=== PATIENT | female | born 1940 | race Caucasian/White ===

== ENCOUNTER 2016-10-20 08:52 | Inpatient (IN) | payer MEDICARE, BC ==
[~2016-10-20] VITALS: Ht 167.6 cm; Wt 63.4 kg
--- NOTE | ~2016-10-20 | ECH ---
Transthoracic Echocardiography Report (TTE) Demographics Patient Name FRANSISCO NIEVES Date of Study 10/21/2016 Patient Number [id number] Visit Number [id number] Date of 1940 Room Number 429 Accession Number [id number] Gender Female Age 76 year(s) Referring David Green MD Supervisor Unloading Guerda Mancia [facility] Physician Stephanie Fitzgerald MD Physician Interpreting King Alex Herring MD Pipe Production Worker Physician Supervising Ordering Physician Stephanie Fitzgerald MD/LEANN ELY Nurse Stress Manager Lean Conclusions Summary Technically adequate exam. The estimated left ventricular ejection fraction is 20-25%. Severe concentric left ventricular hypertrophy. Diastolic assessment reveals Grade II pseudonormal diastolic function . The left ventricle endocardium appears to have increased echogenicity suggestive of possible amyloidosis. Normal right ventricular size and decreased systolic function. RIght ventricular hypertrophy with wall measuring 1.16cm. The left atrium is mildly dilated by LA volume index measurement. Dilated IVC with poor inspiratory collapse consistent with elevated RA pressure. Moderate tricuspid regurgitation by color Doppler. There is mild pulmonary hypertension. The pulmonary pressure (RVSP) is 37 mmHg. Trivial pulmonic valve regurgitation by color Doppler. Procedure Type of Study TTE procedure:Echo Complete SF. Procedure Date Date: 10/21/2016 Start: 02:48 PM Technical Quality: Adequate visualization Indications:Elevated cardiac enzymes, Congestive heart failure and Hypertension. Appropriate Use Criteria: 9 Height: 66 inches Weight: 128 pounds BSA: 1.65 m Rhythm: Sinus with bundle branch block HR: 70 bpm BP: 119/61 mmHg M-Mode/2D Measurements LV Diastolic Dimension: 4.09 cm LV Systolic Dimension: 3.71 cm LV Septum Diastolic: 1.68 cm LV PW Diastolic: 1.74 cm AO Root Dimension: 2.06 cm Cardiac Output: 1.16 l/min LA Dimension: 4.28 cm Cardiac Index: 0.7 l/min*m RV Diastolic Dimension: 2.91 cm LA volume index: 37 ml/m LVOT: 1.58 cm IVC Inspiration: 2.2 cm LVOT VTI: 8.49 cm RV Base: 3.2 cm LV Stroke volume: 16.64 ml RV Mid: 2 cm LV Stroke volume index: 10.08 ml/m RV Length: 6.8 cm TAPSE: 0.8 cm TDI-S': 0.7 cm/s Doppler Measurements AV Peak Velocity: 0.8 m/s MV Peak E-Wave: 0.9 m/s AV Peak Gradient: 2.56 mmHg MV Peak A-Wave: 0.45 m/s AV Mean Gradient: 1.05 mmHg MV E/A Ratio: 1.99 LVOT Peak Velocity: 0.68 m/s MV P1/2t: 32.9 msec AV Area (Continuity):2.07 cm MV Deceleration Time: 116 msec TR Velocity:2.36 m/s MV Area (PHT): 6.7 cm TR Gradient:22.26 mmHg PV Peak Velocity: 0.74 m/s Estimated RAP:15 mmHg PV Peak Gradient: 2.21 mmHg Estimated RVSP: 37 mmHg Estimated PASP: 37.26 mmHg RA Area: 14.89 cm Findings Left Ventricle The left ventricle is normal in size . Severe concentric left ventricular hypertrophy. Diastolic assessment reveals Grade II pseudonormal diastolic function . The left ventricle endocardium appears to have increased echogenicity suggestive of possible amyloidosis. Right Ventricle Normal right ventricular size and decreased systolic function. RIght ventricular hypertrophy with wall measuring 1.16cm. Left Atrium The left atrium is mildly dilated by LA volume index measurement. Right Atrium Normal right atrial size. Dilated IVC with poor inspiratory collapse consistent with elevated RA pressure. Mitral Valve Normal mitral valve structure and function. Mild mitral regurgitation by color Doppler. Aortic Valve Normal aortic valve structure and function. Tricuspid Valve Normal appearing tricuspid valve. Moderate tricuspid regurgitation by color Doppler. There is mild pulmonary hypertension. The pulmonary pressure (RVSP) is 37 mmHg. Pulmonic Valve Normal pulmonic valve structure and function. Trivial pulmonic valve regurgitation by color Doppler. Pericardial Effusion Trivial pericardial effusion. Miscellaneous Visualized portions of the aortic root and ascending aorta appear normal in size. Pleural Effusion No evidence of pleural effusion. Contractility Score LV regional wall motion:(0-Non visualized 1-Normal 2-Hypokinesis 3-Akinesis 4-Dyskinesis 5-Aneurysm) Signature
[~2016-10-20 08:52] MED LIST: ALTOPREV20 MG PO; AMBIEN5 MG PO; ASPIR 8181 MG PO; ATIVAN-DPS0.5 MG PO; CENTRUM SILVER1 EAC1 PO; COREG3.125 MG PO; FERROUS FUMARA324 MG PO; GLUCOPHAGE-DPS500 MG PO; LISINOPRIL20 MG PO; MAALOX DPS30 ML PO; MELATONIN3 M1 PO; MOBIC7.5 MG PO; PLAQUENIL200 MG PO; PLAVIX75 MG PO; QUESTRAN DPS4 GM PO; SURFAK240 MG PO; TYLENOL325 MG PO
--- NOTE | 2016-10-21 10:41 | ER ---
ADMIT: 10/20/2016 RM/LOC: ER [facility] MR#: [id number] [address] [facility] [address] [place], [place] [address] FRANSISCO NIEVES [address] [place] [address] Emergency Room Report SEX: F AGE: 76 : 1940 DATE: 10/20/2016 BRIEF ADDENDUM: Please see my T-sheet for complete review of systems, past medical history, and physical exam. CHIEF COMPLAINT: Weakness. HISTORY OF PRESENT ILLNESS: This is a pleasant 76-year-old white female, who presents with progressive weakness for the past 2 weeks. She is seen at bedside with her family who relate their concerns for increased confusion and weakness to the point where she is unable to get out of bed or take more than 2 to 3 steps at this time. States she has had increasing falls at home. She is typically alert and oriented x4. Uses a walker. Lives alone independently. She admits to some urinary frequency, however denies any dysuria. She does have a cough, however nonproductive. She does have some bilateral lower swelling. PAST MEDICAL HISTORY: 1. CHF. 2. Diabetes with oral control. 3. Hypertension. 4. Hyperlipidemia. 5. Arthritis. PAST SURGICAL HISTORY: 1. Left hip ORIF. 2. Cholecystectomy. 3. Appendectomy. She does follow up with Dr. Oscar at [facility]. COURSE IN THE EMERGENCY ROOM: The patient was seen and examined. Given concerns for urinary tract infection, did get a quick cath UA on her which showed no signs of infection. Did proceed sepsis protocol. White count 6.6, hemoglobin 12.9, hematocrit 39.6, platelets 157. CMP; sodium 143, potassium 4.1, CO2 of 27, BUN 27, creatinine 1.5, AST 46, ALT 45. Cardiac markers; CK 92, CK-MB 7.4, troponin of 0.860, PTT was 23, INR 1.12, lactic acid 1.5. I did discuss this patient with Dr. Garcia, and reviewed some old records. She ADMIT: 10/20/2016 RM/LOC: ER [facility] MR#: [id number] [address] [address] EZEQUIELFRANSISCO Divya [address] [place] [address] Emergency Room Report SEX: F AGE: 76 : 1940 does have a history of hypercalcemia, corrected calcium today 11.5, concerned this could possibly be contributing to some of her altered status. I did request a head CT which we will complete prior to admission. IMPRESSION: 1. Confusion. 2. Weakness. 3. Elevated troponin. 4. Hypercalcemia. DISPOSITION: The patient will be admitted by Dr. Garcia for further evaluation and management. She is admitted to the floor in stable condition. JENNIFER Kirkland / Narayan Nguyen MD / soheilal JOB #: [id number] CC: Narayan Nguyen MD, Attending Physician Dirk Brown MD, Family Physician
--- NOTE | 2016-10-22 07:07 | HP ---
ADMIT: 10/20/2016 RM/LOC: 429 [facility] MR#: [id number] [address] [address] FRANSISCO NIEVES [address] [place] [address] History and Physical SEX: F AGE: 76 : 1940 DATE OF SERVICE: 10/20/2016 CHIEF COMPLAINT: Increasing weakness, now some confusion. HISTORY OF PRESENT ILLNESS: Fransisco was brought to the emergency room by her three children who I interviewed. She had a fall several days ago, but no apparent injuries at that time, did not seek medical care at that time. However, her children who watch over her closely notes that Fransisco does live alone. They have noticed increasing weakness as she is not getting up, there has definitely been some change in her mental status, her self cares have declined, so they brought her to the emergency room today where she was first evaluated by medical staff in the emergency room. For me, Fransisco denied any pain, chills, fever, nausea, vomiting, diarrhea, or shortness of breath. She has had some chronic urinary incontinence which is unchanged, but no dysuria. At any rate, she had a fairly extensive evaluation by emergency room staff including CT head, which showed only some changes consistent with pansinusitis. She had a modest elevation of her cardiac enzymes (this is a patient who has known impaired cardiac function with an EF varying from 20% to 35% as of late). She also had elevated corrected calcium 11.5, which is about 1.5 points above baseline. However, her phosphate was normal and her PTH was not elevated. Also, lactic was normal, procalcitonin was normal, and her CBC was unremarkable. That being said, she represents a high risk going back to her own home where she lives alone and it was felt that she should be admitted for the increased confusion and increased weakness and further evaluated. PAST MEDICAL HISTORY: Chronic problems include: 1. Stage 2 chronic kidney disease. 2. Nonobstructive coronary artery disease. 3. Systolic congestive heart failure. 4. Type 2 diabetes. 5. Dyslipidemia. 6. Essential hypertension. 7. Rheumatoid arthritis. 8. Osteoarthritis. PAST SURGICAL HISTORY: Include: 1. Cholecystectomy. 2. Appendectomy. 3. Her left hip fracture surgery. 4. Cardiac catheterization. 5. Tonsillectomy. 6. Breast augmentation surgery. FAMILY HISTORY: Positive for lung and breast cancer, and heart disease in first-degree relatives. SOCIAL HISTORY: She is . Lives alone. Does not smoke or drink. Her children look after her. ADMIT: 10/20/2016 RM/LOC: 429 [facility] MR#: [id number] [address] [address] FRANSISCO NIEVES [address] [place] [address] History and Physical SEX: F AGE: 76 : 1940 ALLERGIES/INTOLERANCES: Methadone and Darvocet. MEDICATIONS: She is currently on; 1. Coreg. 2. Lisinopril. 3. Plaquenil. 4. Metformin. 5. Aspirin. 6. Lovastatin. 7. Calcium and vitamin D supplements. 8. Multivitamin supplement. REVIEW OF SYSTEMS: CONSTITUTIONAL: Denies chills or fever. ENT: Denies any stuffy nose, cough, or sore throat. RESPIRATORY: Not short of breath. CARDIOVASCULAR: No chest pain. NEURO: No focal weakness, just generalized weak, difficulty ambulating, and then the falls, and the subacute confusional state which has been gradual over the last few weeks. PSYCH: Negative. HEMATOLOGIC: No history of bleeding. No history of blood clots. GENITOURINARY: Some chronic urinary incontinence, unchanged. She denies dysuria for me. GI: Denies any nausea, vomiting, diarrhea, or abdominal pain. PHYSICAL EXAMINATION: GENERAL: A pleasant female, obviously confused but not agitated, not in any acute delirium state. No focal neurologic changes. Moves all arms and legs equally. No dysarthric speech. No aphasia. VITAL SIGNS: 115/68, 59, 19, 96 degrees, 98% sat on room air. ENT: TMs clear. No nasal discharge. Oropharynx clear. EYES: Pupils are equal and reactive. Sclerae are clear. NECK: No masses or venous distention. HEART: Rhythm is sinus. Heart is regular, and I do not hear any cardiac murmurs. I do not hear any extra sounds. ABDOMEN: No palpable tenderness. No guarding. No rebound. No organomegaly. GENITALIA: Not examined. SKIN: No rashes. EXTREMITIES: Upper extremities; no gross abnormalities. Lower extremities; minimal edema in her lower legs only. Feet are little red, but otherwise unremarkable. No signs of infection. Pulses are diminished, but felt. She had recent ankle-brachial indexes done as an outpatient which were felt to be normal. NEURO: Global weakness, but no focal weakness. IMPRESSION: ADMIT: 10/20/2016 RM/LOC: 429 [facility] MR#: [id number] [facility] [address] [address] FRANSISCO NIEVES [address] [place] [address] History and Physical SEX: F AGE: 76 : 1940 1. Subacute mental status changes, etiology unclear. 2. Weakness, etiology unclear. 3. Mild hypercalcemia. 4. Chronic systolic congestive heart failure, but does not appear to be decompensated at this time. 5. Minimal elevation of her troponin, does not appear to be experiencing unstable angina or acute coronary syndrome at this time. PLAN: Initial treatment will consist of close monitoring, some IV hydration, trend her lab abnormalities. Also, taken liberty of treating what appears to be pansinusitis with some IV Rocephin. Dr. Brown, her primary will see her tomorrow morning. Gonzalo Garcia MD/ herbert JOB #: [id number] CC: Dirk Brown, Attending Physician Dirk Brown, Family Physician
--- NOTE | 2016-10-25 09:04 | CO ---
ADMIT: 10/21/2016 RM/LOC: 429 [facility] MR#: [id number] [address] [address] FRANSISCO VELIZ [address] [place] [address] Consultation SEX: F AGE: 76 : 1940 DATE OF CONSULTATION: 10/22/2016 ATTENDING PHYSICIAN: Dirk Brown CONSULTING PHYSICIAN: Delmi Barreto APRN TIME IN: 1135 hours. TIME OUT: 1205 hours. REASON FOR CONSULTATION: Supportive care consultation was requested by Dr. York for discussion of goals for care. HISTORY OF PRESENT ILLNESS: Mrs. Veliz is a 76-year-old female, who was admitted with weakness and confusion following a fall. She was living at home independently. However, in discussion with her and her family, it sounds like she has been declining over the past few weeks. CT of the head was negative for any acute abnormalities except for pansinusitis. Her cardiac enzymes were elevated. She has a history of heart failure with an ejection fraction of 20%-25%. BRANDIE is following her. An echocardiogram was done yesterday that showed the EF as described above and also grade 2 diastolic dysfunction. She has moderate tricuspid regurgitation and mild pulmonary hypertension. The left ventricle endocardium did have increased echogenicity suggestive of possible amyloidosis. She does have a history of rheumatoid arthritis. Evaluation here at the hospital did reveal urinary tract infection which is growing Klebsiella. Due to her multiple complexities, supportive care consultation was requested to discuss goals for care. In terms of advanced directives, the patient is a full code status. In discussion with the patient and her 2 sons who were present at the bedside, they feel that she has completed advanced directives in terms of a living will and healthcare [id number]. The patient's sons are unsure of who the healthcare [id number] is. The patient's daughter, Paty Small whose phone #[phone] is listed as the patient's next of kin and person to notify. I did request that the family bring in the patient's healthcare power- of-immigration attorney paperwork and also her living will for our records. I did indicate that should it be discovered that she has not completed health care power-of- immigration attorney paperwork, we can certainly assist with this if she is not confused and is able to complete paperwork. Symptomatically, the patient denies any complaints. She is very weak and debilitated. She denies any pain or shortness of breath. PAST MEDICAL HISTORY: Stage 2 chronic kidney disease, coronary artery disease, systolic congestive heart failure, type 2 diabetes, dyslipidemia, essential hypertension, rheumatoid arthritis, osteoarthritis, history of left hip fracture with femoral nailing, history of cholecystectomy, appendectomy, tonsillectomy, and left knee surgery. ADMIT: 10/21/2016 RM/LOC: 429 [facility] MR#: [id number] [address] [place] [address] FRANSISCO VELIZ [address] [place] [address] Consultation SEX: F AGE: 76 : 1940 ALLERGIES: THE PATIENT IS ALLERGIC TO MORPHINE AND ITS ANALOGS WELL DARVON. CURRENT MEDICATIONS: Please see the patient's MAR for specific routes and dosages. Her current medications are as follows. 1. Seroquel. 2. Aricept. 3. Rocephin. 4. NovoLog. 5. Plaquenil. 6. Pravachol. 7. Coreg. 8. Maalox. 9. Tylenol. 10.Nitrostat. 11.Normal saline. 12.Glucagon. 13.D5 normal saline. 14.D50. 15.Aspirin. 16.Lovenox. SOCIAL HISTORY: The patient is . She is retired. She has 2 sons and a daughter. She does not use alcohol or tobacco. FAMILY HISTORY: Her father had heart disease and kidney problems and she had a mother with lung cancer and breast cancer. FUNCTIONAL REVIEW: Prior to her stay, it sounds like she was at home independent, but spending the majority of her time in the chair. She was requiring some assistance with ADLs. Her intake was normal to reduced. Her palliative performance scale prior to admission was around 50% to 60%. Currently, she remains mostly in the chair. She is requiring considerable assistance. Her current palliative performance scale is around 50%. REVIEW OF SYSTEMS: A 10-point review of systems was completed and other than those pertinent positives and negatives mentioned the HPI, it is negative. PHYSICAL EXAMINATION: GENERAL: The patient examined in the chair. She is in no acute distress. VITAL SIGNS: Temperature 98.1, pulse 70, respirations 16, blood pressure 126/67, and oxygen 97% on room air. HEENT: Head is normocephalic. Pupils are 3 mm bilaterally and brisk. Oral mucosa pink and moist with fair dentition. NECK: Supple. RESPIRATORY: Respirations are equal and nonlabored at rest. LUNGS: Diminished in the bases bilaterally. CARDIOVASCULAR: Rate rhythm regular without murmurs, rubs, or gallops. No ADMIT: 10/21/2016 RM/LOC: 429 [facility] MR#: [id number] [address] [place] [id number] FRANSISCO VELIZ [address] [place] [address] Consultation SEX: F AGE: 76 : 1940 edema noted. GASTROINTESTINAL: Soft, nontender. Bowel sounds are positive. MUSCULOSKELETAL: Generalized weakness. No obvious joint deformities. INTEGUMENTARY: Skin turgor is fair. No rashes or wounds noted. NEUROLOGIC: Oriented to place and time, but has to think about the year and first states that it is 1996. She is a little confused on details during discussion. PSYCHIATRIC: Calm and cooperative. No agitation noted. DIAGNOSTIC DATA: Sodium 142, potassium 4.3, BUN 26, creatinine 1.4, total protein 5.5, albumin 2.8. WBC 5.7, hemoglobin 13.1, hematocrit 39.9, and platelets are 166. IMPRESSION: 1. Debility with fall. 2. Fatigue. 3. Malaise. 4. Moderate protein calorie malnutrition. 5. Mild confusion. 6. Heart failure. 7. Urinary tract infection. 8. Chronic kidney disease. 9. Rheumatoid arthritis. 10.Questionable amyloidosis. 11.Palliative care. 12.The patient is a full code. PLAN OF TREATMENT: 1. I was able to meet with the patient, her 2 sons at the bedside. We reviewed the patient's overall status and goals for the time ahead. The patient's son describes a decline over the past few weeks in terms of her physical function and also in terms of confusion. At this point, the goal is to get her to rehab to see if she can regain some of her function. Currently the patient's daughter is touring one of the nursing facilities here in town to see if this will be a good fit for the patient. They do agree to ongoing discussions with supportive care pending her status. 2. I did review code status with the patient and her 2 sons including the burden versus benefit of full code status versus do not resuscitate/do not intubate status. The patient and family direct that she would want resuscitation attempted with the knowledge that it would be very difficult on her to undergo resuscitation. They state that they would not want her to be kept alive on machines long-term. They are familiar with this process as they had to make tough decisions regarding the patient's ADMIT: 10/21/2016 RM/LOC: 429 [facility] MR#: [id number] [address] [place] [address] FRANSISCO VELIZ [facility] [place] [address] Consultation SEX: F AGE: 76 : 1940 in the removal of life support. 3. As mentioned above, the patient feels like she has completed advanced directives and I have asked that the son bring in a copy of those documents for us to review and to have on file. If they have not completed health care [id number] paperwork, we are more than happy to assist with this pending her mental status. 4. We will continue to follow along in the care of this patient. We would like to thank Dr. York for the invitation to participate in this patient's care. Total consultation time was 30 minutes from 1135 hours to 1205 hours with 15 minutes from 1140 hours to 1155 hours spent [id number] with the patient and family discussing goals for care and providing counseling and support. We will continue to follow along. Delmi Barreto APRN/ herbert JOB #: [id number] CC: Dirk Brown, Attending Physician Dirk rBown, Family Physician
--- NOTE | 2016-10-30 15:21 | CO ---
ADMIT: 10/21/2016 RM/LOC: 429 [facility] MR#: [id number] [facility]#: [id number] 2620 [facility] [address] [place] [id number] FRANSIS[address] VELIZ [address] [place] [address] Consultation SEX: F AGE: 76 : 1940 DATE OF CONSULTATION: 10/23/2016 ATTENDING PHYSICIAN: Dirk Brown CONSULTING PHYSICIAN: Robert Morales MD REASON FOR CONSULT: Confusion and MRI with brain tumor. HISTORY OF PRESENT ILLNESS: Ms. Veliz is a very pleasant woman who presented on the with some increasing weakness and confusion. She had also been seen by Cardiology for some troponin-related issues and she has been seen by supportive care. MRI was obtained, and after obtaining the results, I was consulted. PAST MEDICAL HISTORY: Coronary artery disease, CHF, type 2 diabetes mellitus, essential hypertension, osteoarthritis, rheumatoid arthritis, dyslipidemia, stage 2 chronic kidney disease, cholecystectomy, left hip fracture surgery, appendectomy, cardiac catheterization, tonsillectomy, breast augmentation. FAMILY HISTORY: Lung, breast cancer, and heart disease. SOCIAL HISTORY: She is and lives alone. There are some plans to transfer, it sounds like, to [facility] for long-term care. ALLERGIES: METHADONE AND DARVOCET. MEDICATIONS: Medication reconciliation reviewed. REVIEW OF SYSTEMS: Full review of systems was attempted. The patient is pleasantly confused and it is a little bit difficult to obtain full review of systems from. PHYSICAL EXAMINATION: VITAL SIGNS: 97.1 degrees, 71 beats, 18 respirations, 109/76, 100% saturation on room air. GENERAL: She is an otherwise healthy, age-appropriate appearing 76-year-old woman with an atraumatic head. HEENT: No scleral icterus. Clear oropharynx. LUNGS: Normal respiratory excursion. ABDOMEN: Soft abdomen. NEUROLOGICAL EXAMINATION: MENTAL STATUS: She is awake, alert, oriented to person and place but not date. She thinks it is 1928 and asked me about five different times when I was in there what kind of doctor I was and what I was there for. She has no aphasia. Her affect is appropriate. CRANIAL NERVES: Cranial nerves II through XII were individually tested and found to be intact without deficit. MOTOR EXAM: Motor exam reveals full and equal activation, although she has some global eyes deconditioning and weakness from that. SENSATION: Sensation appears to be intact to light touch. ADMIT: 10/21/2016 RM/LOC: 429 [facility] MR#: [id number] [address] [address] FR[address] VELIZ [address] [place] [address] Consultation SEX: F AGE: 76 : 1940 DEEP TENDON REFLEXES: 2/4 in the upper and lower extremities. CEREBELLAR: No cerebellar signs. GAIT: Not tested. ASSESSMENT AND PLAN: Ms. Veliz is a very pleasant woman, who has a right- sided tentorial likely meningioma. This has some pretty classic characteristics. This does not appear to be compressive. I do not think it is the cause of her confusion. I do think she has some subtle signs of early dementia. She likely needs a neurological evaluation. It is reasonable to not follow this along any further at her age or to get another MRI in 6-12 months if there is any further concern for metastatic disease, which I think this is pretty clearly meningioma, although I explained to family that MRI is not the same as pathological diagnosis and with any further metastatic concern, chest, abdomen, and pelvis CT scan would be in order, although as I said, I think this looks very consistent with meningioma. I will plan to follow up if she needs anything in the future or if they decide they would like a followup MRI at any point in the future. I would be happy to obtain that and go over the results with them, and I also counseled the patient's family that signs of hemibody weakness, numbness, loss of visual fernandez, or seizures could be signs of tumor change or growth, and at that point, I would repeat evaluation, although I think it is likely that this will not grow to be big enough to consider resection during her life span. Robert Morales MD/ herbert JOB #: [id number] CC: Dirk Brown, Attending Physician Dirk Brown, Family Physician
--- NOTE | 2016-11-01 08:00 | CO ---
ADMIT: 10/21/2016 RM/LOC: 429 [facility] MR#: [id number] [facility]#: [id number] [address] [address] FRANSISCO NIEVES [address] [place] [address] Consultation SEX: F AGE: 76 : 1940 DATE OF CONSULTATION: 10/24/2016 ATTENDING PHYSICIAN: Dirk Brown CONSULTING PHYSICIAN: Galdino Mariee MD REASON FOR CONSULTATION: 1. Urinary tract infection. 2. Urinary retention. HISTORY OF PRESENT ILLNESS: The patient was brought in initially several days ago after a fall. At that time, she was noted to have some confusion and mental status changes. During that evaluation, she was found to have meningioma which was not felt to be contributing to her confusion. She was noted to have a Klebsiella urinary tract infection, currently on Augmentin therapy for that. Her urinalysis was quite unremarkable at the time of admission, however. Her serum creatinine is fairly unremarkable. Her white blood cell count is normal. She was identified as having some difficulty with elevated urinary residual. Newell catheter was placed in the early portions of her hospitalization and since Newell catheter removal, she has had residuals that are consistently greater than 300 mL. Nursing staff does state that she gets quite confused and agitated if her residual is above 400 mL and she feels like she has to go the bathroom. She has had some issues with constipation and did have to manually disimpact herself this morning. The patient does not relay any specific history of urinary difficulties although in the chart there is some chronic urinary incontinence that has been noted. The patient's son also states that she typically would get up fairly often at night to go to the bathroom. Obviously with elevated urinary residual, which may be a chronic issue this may be the main predisposing factor to urinary tract infection and this is likely the cause of her confusion as well as weakness. Given ongoing issues, I have recommended we place a Newell catheter, let the patient recover. I would address constipation aggressively. I would treat her urinary tract infection aggressively and then follow with low-dose suppressive antibiotics based on culture results. Hopefully as the patient regains her strength and mobility, we can consider a voiding trial on an outpatient basis and she will succeed. PAST MEDICAL HISTORY: Significant for: 1. Chronic kidney disease. 2. Coronary artery disease. 3. Type 2 diabetes. 4. CHF. 5. Dyslipidemia. 6. Hypertension. 7. Rheumatoid arthritis. 8. Osteoarthritis. PAST SURGERY: Includes: 1. Cholecystectomy. ADMIT: 10/21/2016 RM/LOC: 429 [facility] MR#: [id number] [facility] [address] [address] FRANSISCO NIEVES [address] [place] [address] Consultation SEX: F AGE: 76 : 1940 2. Appendectomy. 3. Left hip fracture repair. 4. Cardiac catheterization. 5. Tonsillectomy. 6. Breast augmentation. No previous urologic procedures are noted. MEDICATIONS: At present include: 1. Aricept. 2. Aspirin. 3. Augmentin. 4. Plaquenil. 5. Pravachol. 6. Seroquel. ALLERGIES: TO MORPHINE WELL PROPOXYPHENE, AND METHADONE. FAMILY HISTORY: Significant for lung and breast cancer as well as heart disease. SOCIAL HISTORY: The patient is transferred to assisted, previously lived independently. Her children did provide supervision of her day-to-day activities. PHYSICAL EXAM: GENERAL: The patient is very confused, unable to provide me any specific useful urologic history. She is afebrile. VITAL SIGNS: Stable. ABDOMEN: Otherwise soft without suprapubic mass or tenderness. No guarding or rebound. BACK: No costovertebral angle tenderness. GYNECOLOGIC: The patient has normal external female genitalia. There is mild inflammation of the urethral meatus, but there was no evidence of meatal stenosis, urethral prolapse, or urethral caruncle. There is no mass or tenderness to palpation of the urethra. There was no significant cystocele. LABORATORY DATA: Serum creatinine is 1.3. White blood cell count 7.2. Urinalysis previously demonstrated a pH of 7.5, 1+ leukocyte esterase, 4 ADMIT: 10/21/2016 RM/LOC: 429 [facility] MR#: [id number] 2620 [facility] [address] [place], [place] [address] FRANSISCO NIEVES [address] [place] [address] Consultation SEX: F AGE: 76 : 1940 whites, and 7 reds. Final culture demonstrated Klebsiella resistant only to ampicillin. ASSESSMENT: 1. Urinary tract infection. Likely related to chronic mild elevation of urinary residual. I would treat it aggressively with 14 days of culture- specific antibiotic therapy and then transition to suppressive antibiotic therapy until we can get her urinary retention issue figured out. 2. Urinary retention. I have recommended Newell catheter placement at least in the short term, I would aggressively treat constipation. We will reassess the patient in 2 weeks and consider a voiding trial at that time depending on her clinical status. Galdino Mariee MD/ herbert JOB #: [id number] CC: Dirk Brown, Attending Physician Dirk Brown, Family Physician
--- NOTE | 2016-11-01 11:50 | CO ---
ADMIT: 10/21/2016 RM/LOC: 429 [facility] MR#: [id number] [facility]#: [id number] [address] [address] FRANSISCO VELIZ [address] [place] [address] Consultation SEX: F AGE: 76 : 1940 DATE OF CONSULTATION: 10/21/2016 ATTENDING PHYSICIAN: Dirk Brown CONSULTING PHYSICIAN: Renetta Hernandez MD REASON FOR CONSULTATION: Heart failure, abnormal troponin. HISTORY OF PRESENT ILLNESS: I was asked to consult on Ms. Veliz at the request of Dr. Garcia for the problem of heart failure and abnormal troponin. She only follows with Dr. Oscar, has been evaluated for recent decline in her ejection fraction to around 20%. Her son notes that she has been more fatigued with altered mental status. She is very weak. She is denying any chest pain. She has no orthopnea, and no PND. She has a slight weight gain since last clinic visit, but nothing too much out of the ordinary. She denies any fevers or chills, cough or cold symptoms. PAST MEDICAL/SURGICAL HISTORY: 1. Nonobstructive coronary artery disease on catheterization 2013. 2. New systolic heart failure. 3. Rheumatoid arthritis. 4. History of left hip fracture with femoral nailing. 5. History of cholecystectomy. 6. Appendectomy. 7. Tonsillectomy. 8. Left knee surgery. MEDICATIONS: Currently include; 1. Aspirin 81 mg. 2. Coreg 3.125 mg. 3. Plaquenil 400 mg a day. 4. Pravachol 40 mg at bedtime. 5. Lovenox as directed. 6. NovoLog as directed. 7. Normal saline. 8. Rocephin. ALLERGIES: OPIOIDS, MORPHINE, PROPOXYPHENE. FAMILY HISTORY: Father with heart disease and kidney problems. Mother with lung cancer and breast cancer. SOCIAL HISTORY: She lives alone. Retired. . Two sons and one daughter, one son is present today. Nonsmoker. Nondrinker. REVIEW OF SYSTEMS: A full 10-point review of systems was obtained and deemed to be negative except the pertinently dictated positives in the HPI. PHYSICAL EXAMINATION: VITAL SIGNS: Today; her blood pressure is 119/61 with ADMIT: 10/21/2016 RM/LOC: 429 [facility] MR#: [id number] [address] [address] FRANSIS[address] VELIZ [address] [place] [address] Consultation SEX: F AGE: 76 : 1940 pulse 75, temp 97.2. Her weight is 129 pounds. GENERAL: She is a pleasant, well-nourished, well-developed white female, in no acute distress. Alert and oriented. NECK: Shows brisk carotid upstrokes. No JVD or bruit. CHEST: Clear. HEART: Regular. ABDOMEN: Soft. EXTREMITIES: No cyanosis, clubbing, edema. MUSCULOSKELETAL: Exam is normal. NEUROLOGIC: Exam is normal. SKIN: [place], warm, and dry. LABORATORY AND ANCILLARY DATA: EKG shows sinus rhythm with a left bundle- branch block. Recent stress test last week, showed no evidence of ischemia with depressed ejection fraction. Carotid scan shows no abnormality. Laboratory shows sodium 143, BUN of 26, creatinine 1.4, glucose 226. CK is 92, MB 7.4, troponin is 0.86. White blood cell count is 5.7, hemoglobin 13.1, and platelet count 166,000. ASSESSMENT AND PLAN: 1. Weakness. 2. Altered mental status/confusion. 3. Congestive heart failure systolic, chronic. 4. Chronic renal insufficiency. 5. Diabetes. 6. Abnormal troponin. I see no obvious cardiac etiology of her recent decline in her mental status and energy. Recent stress without ischemia and EF for anywhere from 20% to 30%. Continue on her CHF medications. I wonder whether or not she has an opportunistic virus or infection leading to issues, question West Nile virus. Maybe even worsening diabetes mellitus is leading to the decline. We will continue to follow along. Thank you for this consultation. Renetta Hernandez MD/ herbert JOB #: [id number] CC: Dirk Brown, Attending Physician Drik Brown, Family Physician
--- NOTE | 2016-11-22 07:39 | DS ---
ADMIT: 10/21/2016 RM/LOC: 429 [facility] MR#: [id number] 2620 [facility] [address] [place] [phone] [address] [address] General Discharge Summary SEX: F AGE: 76 : 1940 ADMISSION DATE: 10/21/2016 DISCHARGE DATE: 10/25/2016 INDICATION FOR HOSPITALIZATION: Fransisco is a 76-year-old, white female, brought to the emergency room by her children, no apparent injury and due to weakness, mental status changes, inability to take care for herself. She has had some chronic urinary incontinence as well, and she was admitted for further evaluation and management for her confusion and overall weakness. Admission was done by Dr. Garcia. Please see her admission H and P for the details regarding her history of present illness, past medical history, physical exam, and assessment at the time of hospitalization. HOSPITAL COURSE: At the time of admission, the patient had a CAT scan of the brain, which showed no acute changes, but showed evidence of some chronic sinusitis. Extensive lab and x-ray evaluation had been undertaken. Accu-Chek monitoring was ordered along with sliding scale insulin. Basic labs were ordered. Her home medications were reviewed and continued. IV Rocephin was ordered for her sinusitis. Elevated cardiac enzymes were noted and as a result, Cardiology was formally consulted. EKG showed a left bundle-branch block. Hemoglobin A1c was 8.5. CBC was unremarkable and blood cultures were negative on October 21. CT demonstrated severe sinusitis. Dementia screen testing was requested. She was felt to have chronic systolic congestive heart failure by [facility]. She was transferred to the ICU on the . By the , her vital signs were stable. Cardiac enzymes remained high. Blood cultures remained negative. Urine culture showed Klebsiella pneumoniae UTI. Carotid Doppler showed some mild atherosclerosis. Rocephin was discontinued. Augmentin was started for sinusitis. MRI of the brain was obtained due to her mental status changes. Arrangements for transfer to assisted were made. 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 Neurosurgery was consulted regarding this. Some chronic small-vessel and maxillary sinus changes were noted. On further discussions with Neurosurgery, it was felt that the meningioma was probably not needing surgical intervention or further evaluation at this time. Urinary retention was additionally noted on October 24 and as a result, Urology was consulted. Due to her confusion, low-dose Zyprexa was initiated to see if it would help with her altered mental status. Urology placed a Newell and recommended followup in 2 weeks for urinary retention and on October 25, she was transferred to the assisted for rehabilitation and strengthening. MEDICATIONS: Please include a copy of her discharge med list at this time. DISCHARGE DIAGNOSES: Include: 1. Pansinusitis. 2. 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 3. Diffuse degenerative arthritis and arthritis of the hip status post transcutaneous femoral nail. ADMIT: 10/21/2016 RM/LOC: 429 [facility] MR#: [id number] [address] [place] [phone] [place] [address] General Discharge Summary SEX: F AGE: 76 : 1940 4. Urinary retention. 5. Diabetes mellitus, type 2. 6. Chronic systolic congestive heart failure. 7. Chronic elevated cardiac enzymes. 8. Chronic kidney disease, stage 2. 9. Nonobstructive coronary artery disease. 10.Hyperlipidemia. 11.Benign essential hypertension. 12.Rheumatoid arthritis. 13.Osteoarthritis. PROCEDURES: Include cardiology consultation and diuresis, IV antibiotics, oral antibiotics for the pansinusitis; Neurosurgery consultation regarding meningioma, which was felt to be a nonsurgical problem of limited impact at this time; IV fluids, electrolytes, and medical management of her multiple medical problems outlined above. Please see her hospital record for the details. Dirk Brown MD/ herbert JOB #: [id number] CC: Dirk Brown MD, Attending Physician Dirk Brown MD, Family Physician
[2016-11-29] MEDS ORDERED: ARICEPT DPS5 MG PO (13:07)
[2016-11-29] MEDS ORDERED: ASA CHILDREN'S81 MG PO (13:07)
[2016-11-29] MEDS ORDERED: AUGMENTIN 500-1 EACH PO (13:08)
[2016-11-29] MEDS ORDERED: CARVEDILOL3.125 MG PO (13:08)
[2016-11-29] MEDS ORDERED: GLUCOPHAGE-DPS500 MG PO (13:08)
[2016-11-29] MEDS ORDERED: OYSTER SHELL C500 MG PO (13:09)
[2016-11-29] MEDS ORDERED: LEXAPRO DPS20 MG PO (13:09)
[2016-11-29] MEDS ORDERED: MEGACE DPS40 MG PO (13:09)
[2016-11-29] MEDS ORDERED: NAMENDA5 MG PO (13:09)
[2016-11-29] MEDS ORDERED: PLAQUENIL DPS200 MG PO (13:10)
[2016-11-29] MEDS ORDERED: CENTRUM SILVER1 EAC1 PO (13:10)
[2016-11-29] MEDS ORDERED: PRAVACHOL20 MG PO (13:10)
[2016-11-29] MEDS ORDERED: RITALIN-DPS5 MG PO (13:10)
[2016-11-29] MEDS ORDERED: ZESTRIL DPS20 MG PO (13:10)
[2016-11-29] MEDS ORDERED: NORCO 5-325 TA1 EACH PO (13:11)
[2016-11-29] MEDS ORDERED: TYLENOL DPS325 MG PO (13:11)
[2016-11-29] MEDS ORDERED: COLACE-DPS100 MG PO (13:11)
[2016-11-29] MEDS ORDERED: B & O SUPP 16.1 SUPP PR (13:12)
== END 2016-10-25 11:36 | DRG 689 ==
LOC: ER 08:52 → 4PCU 12:10
PROVIDERS: ADMIT Family Medicine
DX: N39.0 Urinary tract infection, site not specified (principal); G93.40 Encephalopathy, unspecified; E44.0 Moderate protein-calorie malnutrition; E83.52 Hypercalcemia; I50.22 Chronic systolic (congestive) heart failure; I11.0 Hypertensive heart disease with heart failure; E11.22 Type 2 diabetes mellitus with diabetic chronic kidney disease; I36.1 Nonrheumatic tricuspid (valve) insufficiency; I13.0 Hypertensive heart and chronic kidney disease with heart failure and stage 1 through stage 4 chronic kidney disease, or unspecified chronic kidney disease; B96.1 Klebsiella pneumoniae [K. pneumoniae] as the cause of diseases classified elsewhere; G30.9 Alzheimer's disease, unspecified; F02.80 Dementia in other diseases classified elsewhere, unspecified severity, without behavioral disturbance, psychotic disturbance, mood disturbance, and anxiety; D32.9 Benign neoplasm of meninges, unspecified; R33.9 Retention of urine, unspecified; R32 Unspecified urinary incontinence; K59.00 Constipation, unspecified; J32.4 Chronic pansinusitis; R79.89 Other specified abnormal findings of blood chemistry; E78.5 Hyperlipidemia, unspecified; M06.9 Rheumatoid arthritis, unspecified; M19.90 Unspecified osteoarthritis, unspecified site; N18.2 Chronic kidney disease, stage 2 (mild); I25.10 Atherosclerotic heart disease of native coronary artery without angina pectoris; Z79.82 Long term (current) use of aspirin; Z79.84 Long term (current) use of oral hypoglycemic drugs

== ENCOUNTER 2016-11-23 17:09 | Inpatient (IN) | payer MEDICARE, BC ==
[~2016-11-23] VITALS: Ht 167.6 cm; Wt 63.8 kg
--- NOTE | 2016-11-24 13:05 | ER ---
ADMIT: 11/23/2016 RM/LOC: 402 [facility] MR#: [id number] [facility]#: [id number] 2620 [facility] [address] [place] [phone] [place]FR[address]ISCO [place], [place] [address] Emergency Room Report SEX: F AGE: 76 : 1940 DATE: 11/23/2016 HISTORY OF PRESENT ILLNESS: The patient is a 76-year-old female with a past medical history of coronary artery disease, CHF, hypertension, diabetes, chronic kidney disease, who was brought to the ER with chief complaint of generalized weakness. The patient was here a month ago for similar symptoms and per family at that time she was weak, but she was able to walk with walker before, but since the same day, she was discharged she was bedridden. In the previous visits, the patient was diagnosed with elevated troponin level, CHF, ejection fraction of 20%, and also meningioma without any obvious focal deficit. The patient had MRI, and Neurosurgery is already on board. PHYSICAL EXAMINATION: GENERAL: In the ER, the patient was oriented to person and place, but not to the time which per family is the baseline recently, was in no acute pain or distress, but states that she feels very tired. VITAL SIGNS: The patient had blood pressure of 116/62, with heart rate of 65, respiratory rate of 16, and temperature of 99. HEENT: Conjunctiva was not pale. The patient had normal extraocular movement and pupils are 3 mm and reactive to light. NECK: In the neck, I did not feel any bruit or stiffness and the rest of the neck exam is noncontributory. CHEST: Clear bilaterally without any crackles. HEART: Normal heart sounds without any murmurs or gallops. ABDOMEN: Soft. There was an indwelling Newell catheter in place with unknown placement time. EXTREMITIES: There was a stage I decubitus ulcer about 1 x 1 inch on the sacral area, which was already dressed. There was mild swelling in bilateral legs, which was nonpitting. The rest of the physical examination is noncontributory. LABORATORY DATA AND IMAGING: Urine cath was changed and chest x-ray did not ADMIT: 11/23/2016 RM/LOC: 402 [facility] MR#: [id number] [address] [address] [place] [address] Emergency Room Report SEX: F AGE: 76 : 1940 show any acute changes. EKG did not show any ST or T changes or Q-waves or arrhythmia. Troponin was elevated to 0.62. WBC was 8.7, with hemoglobin of 12.6. Sodium was 134 with potassium of 5.3, with BUN of 23 and creatinine of 1.5, which was elevated from 1.3, a month ago. ProBNP was also elevated to 25,000. Urine was positive for 384 wbc's and 50 rbc's. The patient received 1 g of ceftriaxone in the ER. DIAGNOSES: With the diagnoses of generalized weakness, complicated urinary tract infection, congestive heart failure, rule out aop-CU-bbbmposfn myocardial infarction, the patient was admitted for further followups and treatments. Sebas Allison MD/ herbert JOB #: [id number] CC: Jean Muniz MD, Attending Physician Jean Muniz MD, Family Physician
--- NOTE | 2016-11-25 14:24 | HP ---
ADMIT: 11/23/2016 RM/LOC: 402 [facility] MR#: [id number] 2620 [facility] [address] [place] [phone] EZEQUIEL FRANSISCO [place], [place] [address] History and Physical SEX: F AGE: 76 : 1940 DATE OF SERVICE: 11/23/2016 CHIEF COMPLAINT: Increasing weakness and lower extremity swelling. HISTORY OF PRESENT ILLNESS: The patient is a pleasant 76-year-old female, who was actually just recently admitted to the hospital about 1 month ago for similar complaints. She was found to have a UTI at that time. The patient was then transferred to [facility] for rehabilitation. She has had little to no improvement in strength and weakness. She currently feels like she does not have any strength to even walk a few feet whereas in the hospital she was walking much better walking often down the hallway with physical therapy. She had a UTI. Bacteria was klebsiella. This was suspected to be due to urinary retention. She had a catheter placed while in the hospital a month ago. She followed up with Dr. Mariee couple weeks ago where they decided that her UTI was resolved. He did suggest that she could take out the UTI at that time and she left that to her and the family to decide when that would work best for her as the patient is still struggling to even get up and walk a few steps, so urinary catheter was continued for the last few days. The patient has continued to have the confusion, although no major changes. Her weakness continued. Family was more concerned. They also were concerned that they talked with one of their family friends, Dr. Harinder Mariee, who is a retired [employer] about the patient and he suggested that the patient probably needs to be seen sooner than later. I spoke with him over the phone today at the [facility], and we decided that the patient did warrant at least come into the ER and get evaluated for possible hospital admission. They also wanted to mention to me that she had lots of lower extremity swelling. No chest pain or shortness of breath, but that she does have CHF and her lower extremities are very swollen and almost taut. REVIEW OF SYSTEMS: GENERAL: She is weak. No fever. Has mild confusion. She has had increased weakness. HEENT: No sore throat. No visual changes. No rhinorrhea or difficulty swallowing. HEART: No shortness of breath. No chest pain. No palpitations. LUNGS: No wheeze, cough, or shortness of breath. ABDOMEN: No abdominal pain. No nausea or vomiting. She does have a severely decreased appetite and has not been eating for at least 3 to 4 days. No constipation or diarrhea. EXTREMITIES: She does have right shoulder back pain. She complains of weakness bilaterally. She has increased swelling in her lower extremities. GENITOURINARY: She has a Newell catheter in place. NEUROLOGIC: She does have confusion at times, but no drastic changes over the past 6 weeks. No seizure-like or stroke-like activity. She is more fatigued and does not sleeping well. They do mention that they found a meningioma on MRI in October; however, the Neurosurgery did not feel it needed any intervention at that time. PAST MEDICAL HISTORY: Significant for hypertension, diabetes, congestive heart failure with an EF of 20% to 25%. She has a history of a hip fracture, ADMIT: 11/23/2016 RM/LOC: 402 [facility] MR#: [id number] [address] [place] [phone] [place] [address] History and Physical SEX: F AGE: 76 : 1940 dementia, the meningioma, and urinary retention. She has a history of gallbladder removal, tonsillectomy, and adenoidectomy. She has a hip fracture repair on the right. SOCIAL HISTORY: She is . She was living at home prior to this about 8 weeks ago, but is now residing in [facility] facility for [facility]hab and physical therapy. No alcohol. No smoking. ALLERGIES: INCLUDE MORPHINE AND DARVOCET. THEY ALSO MENTIONED THAT SHE BECOMES VERY CONFUSED WHEN SHE IS ON SEROQUEL. MEDICATIONS: See list. PHYSICAL EXAMINATION: VITAL SIGNS: 98.1 degrees Fahrenheit, 65 pulse, 16 respirations, blood pressure is 124/69, and SpO2 of 96% on room air. GENERAL: No acute distress. Alert and oriented x3. Tired but very pleasant heart regular rate and rhythm. No murmur. Pulses are 2+ bilaterally. LUNGS: Clear to auscultation bilaterally. Normal effort. No wheezing or rhonchi. HEENT: Normocephalic and atraumatic. Moist mucous membranes. Extraocular muscles are intact. She wears glasses. ABDOMEN: Soft. Positive bowel sounds. Nontender. No hepatomegaly or splenomegaly. She does have some dependent edema up to her waist. EXTREMITIES: She has pitting edema bilaterally about 3+ all the way up into her face and lower abdomen. Otherwise, she has good range of motion. NEUROLOGIC: Cranial nerves II through XII are grossly intact. DIAGNOSTIC DATA: Chest x-ray did not appreciate any acute pulmonary process at that time from my read, but she does have cardiomegaly. Head CT showed small vessel ischemic changes, sinus disease. They were not able to visualize the meningioma at that time. Blood work showed a white blood cell count of 8.7, hemoglobin 12.6, and platelets of 246. BMP; sodium is 134, potassium slightly high at 5.3, chloride is 102, CO2 of 24, BUN is 23, creatinine is 1.5, glucose is 150, calcium 11.8, mag is 1.9, total protein is 5.9, albumin is 2.5, troponin was 0.628. Of note in her last hospital stay, the patient also had elevated troponin of 0.743 on 10/24/2016. BNP was elevated at this time 25,508. A month ago, it was 3123. UA today shows positive UTI, 3+ leukocyte esterase, increased white blood cell count, and culture was sent for further investigation. Again of note, the patient had Klebsiella UTI in the last hospitalization. ADMIT: 11/23/2016 RM/LOC: 402 [facility] MR#: [id number] [facility] [address] [phone] [place] [address] History and Physical SEX: F AGE: 76 : 1940 ASSESSMENT AND PLAN: 1. Congestive heart failure exacerbation with an ejection fraction of 20% to 25%. We will gently diurese this patient as the patient has elevated creatinine. We will continue to monitor her kidney function closely. 2. Urinary tract infection. It is complicated because she has a Newell catheter plus she was recently just treated for UTI secondary to klebsiella. We will start the patient on third generation cephalosporin and continue to monitor. Other diagnoses include hypertension, diabetes, and dementia. We will continue to follow the patient's electrolytes, and we will also try to increase the patient's urinary output to help offload the excess fluid that she is retaining due to her congestive heart failure at this time. Vandana Mireles MD Resident / Jean Muniz MD / herbert JOB #: [id number] CC: Dirk Brown, Attending Physician Dirk Brown, Family Physician
--- NOTE | 2016-11-28 07:20 | CO ---
ADMIT: 11/23/2016 RM/LOC: 402 [facility] MR#: [id number] [address] [phone] [place] [address] Consultation SEX: F AGE: 76 : 1940 DATE OF CONSULTATION: 11/25/2016 ATTENDING PHYSICIAN: Dirk Brown CONSULTING PHYSICIAN: Jose Oscar MD REASON FOR CONSULT: Elevated cardiac enzymes, acute on chronic heart failure. HISTORY OF PRESENT ILLNESS: The patient presented to the ER on 11/23/2016 with a chief complaint of generalized weakness. She had been seen about a month ago for similar symptoms and was treated for a UTI. Since this time, the patient's ability to ambulate has significantly decreased and she has been bedridden for the last month in which was prior not the case. The patient has some confusion as well. She denies chest pain or tightness, shortness of breath or palpitations. She does admit to orthopnea and lower extremity edema. The patient's most recent diagnostics included coronary angiography in April of 2014 revealing a mid RCA lesion of 40%. Her last echocardiogram was in September of 2016 revealing an ejection fraction of 20%. She had a Lexiscan done in October of 2016 that was negative for ischemic changes, but did reveal an ejection fraction of 36% at this time. The patient's cardiovascular risk factor survey reveals a past medical history of hypertension, high cholesterol, diabetes type 2, and is negative for smoking history. PAST MEDICAL HISTORY: Chronic kidney disease, meningioma, possible depression, and dementia. PHYSICAL EXAMINATION: VITAL SIGNS: Temperature afebrile, pulse 65, respiratory rate 20, blood pressure 112/71, O2 sat 95% on room air. GENERAL: Alert and oriented to person and place, not to time. No acute distress, confused. HEENT: Normocephalic and atraumatic. Elevated JVP, absent bruits. HEART: Regular rate and rhythm. No murmurs, clicks, rubs, or gallops. LUNGS: Clear to auscultation. ABDOMEN: Soft and nontender. EXTREMITIES: 2+ edema bilaterally. NEURO: Intact. LABORATORY DATA: Sodium 137, potassium 501, chloride 102, CO2 27, BUN 27, creatinine 1.6, glucose 131, magnesium 1.9, white blood cell count 8.2, hemoglobin of 11.7, CK-MB 11.2, troponin 0.610. Cardiac enzymes are chronically elevated and these numbers are consistent with past levels. ProBNP 25,508, TSH 2.73. Chest x-ray, small left pleural effusion with left lower lobe atelectasis/consolidation. ASSESSMENT: 1. Acute on chronic systolic heart failure. The patient is up 10 to 11 ADMIT: 11/23/2016 RM/LOC: [address] [place] [address] MR#: [id number] [address] [place] [phone] [place] [address] Consultation SEX: F AGE: 76 : 1940 pounds since October. She also has significant edema. We will increase IV Lasix. 2. Nonischemic cardiomyopathy - recent stress test shows no ischemia, coronary angiography in April of 2014 only showed 40% mid right coronary artery lesion. 3. Generalized fatigue. 4. Chronic kidney disease. 5. Meningioma. 6. Urinary tract infection. 7. Hypertension. 8. Diabetes. 9. Dementia. JENNIFER Bernard Student / Jose Oscar MD / herbert JOB #: [id number] CC: Idrk L Vettel, Attending Physician Dirk Brown, Family Physician
[2016-11-29] MEDS ORDERED: ASA CHILDREN'S81 MG PO (13:07)
[2016-11-29] MEDS ORDERED: ARICEPT DPS5 MG PO (13:07)
[2016-11-29] MEDS ORDERED: GLUCOPHAGE-DPS500 MG PO (13:08)
[2016-11-29] MEDS ORDERED: CARVEDILOL3.125 MG PO (13:08)
[2016-11-29] MEDS ORDERED: AUGMENTIN 500-1 EACH PO (13:08)
[2016-11-29] MEDS ORDERED: LEXAPRO DPS20 MG PO (13:09)
[2016-11-29] MEDS ORDERED: OYSTER SHELL C500 MG PO (13:09)
[2016-11-29] MEDS ORDERED: NAMENDA5 MG PO (13:09)
[2016-11-29] MEDS ORDERED: MEGACE DPS40 MG PO (13:09)
[2016-11-29] MEDS ORDERED: CENTRUM SILVER1 EAC1 PO (13:10)
[2016-11-29] MEDS ORDERED: ZESTRIL DPS20 MG PO (13:10)
[2016-11-29] MEDS ORDERED: RITALIN-DPS5 MG PO (13:10)
[2016-11-29] MEDS ORDERED: PLAQUENIL DPS200 MG PO (13:10)
[2016-11-29] MEDS ORDERED: PRAVACHOL20 MG PO (13:10)
[2016-11-29] MEDS ORDERED: NORCO 5-325 TA1 EACH PO (13:11)
[2016-11-29] MEDS ORDERED: COLACE-DPS100 MG PO (13:11)
[2016-11-29] MEDS ORDERED: TYLENOL DPS325 MG PO (13:11)
[2016-11-29] MEDS ORDERED: B & O SUPP 16.1 SUPP PR (13:12)
--- NOTE | 2016-12-12 08:08 | DS ---
ADMIT: 11/23/2016 RM/LOC: 402 [facility] MR#: [id number] [address] [address] EZEQUIELFRANSISCO [place], [place] [address] General Discharge Summary SEX: F AGE: 76 : 1940 ADMISSION DATE: 11/23/2016 DISCHARGE DATE: 11/28/2016 CONSULTS: Heme-Oncology and Cardiology. FINAL DIAGNOSES: 1. Acute on chronic congestive heart failure exacerbation. 2. Complicated urinary tract infection. 3. Depression. 4. Dementia. 5. Elevated troponin. 6. Elevated lambda/kappa chains. 7. Hypertension. 8. Diabetes type 2. 9. Rheumatoid arthritis. HISTORY OF PRESENT ILLNESS: The patient is a pleasant 76-year-old female, who came in for increasing weakness and lower extremity swelling per her family and patient. The patient was admitted one month ago for similar symptoms and was found to have a UTI at that time. The patient was doing well at the hospital, was able to walk without difficulty; however, since going to the half-way, the patient has been feeling very weak, very scared to walk and could not walk more than a few feet. The patient was requiring the wheelchair and the patient was also mentioning some orthopnea with this. The patient presented to the ER at this time. The patient again was found to have a UTI. So, the patient was started on antibiotic treatment. The patient had at least 2+ swelling of the lower extremities up to close her abdomen. BNP was elevated as well, so the patient was started on IV Lasix. Cardiology was consulted and helped manage her acute congestive heart failure. Of note, the patient had lab work during last hospitalization that showed elevated kappa/lambda chain, so Heme-Onc was consulted, they suspected this is acutely secondary to infection, but they suggested to repeat the levels in 6 months for further management. Throughout the hospital stay, it was evident that the patient was having some severe depression as well as dementia, largely suspected to be contributing to her symptoms of weakness. The patient's CHF improved and UTI symptoms improved. The patient was discharged back to the half-way facility, [place]. It was decided with the patient and the patient's family as well as our staff that it will be pertinent as the patient sees a flooring helper to help with her chronic medical needs as well as her dementia. The patient was set up with a followup appointment with Dr. Hardeep Stokes on January 28. She also had follow up with Dr. Brown on the 03 of December. Medications at the time of discharge include: 1. Aricept 10 mg daily. 2. Baby aspirin. 3. Augmentin 500 mg b.i.d. x10 days for her UTI. 4. Coreg 3.125 mg b.i.d. 5. Metformin 500 mg daily. ADMIT: 11/23/2016 RM/LOC: 402 [facility] MR#: [id number] [address] [place] [phone] [place] [address] General Discharge Summary SEX: F AGE: 76 : 1940 6. Lexapro 20 mg daily. 7. Megace 200 mg b.i.d. 8. Namenda 5 mg p.o. at bedtime. 9. Calcium 500 mg b.i.d. 10.Plaquenil 400 mg daily. 11.Lovastatin 20 mg at bedtime. 12.Ritalin 5 mg daily. 13.Zestril 20 mg daily. 14.Colace 100 mg b.i.d. 15.Percocet t.i.d. p.r.n. 16.Tylenol p.r.n. 17.Multivitamin daily. 18.Zofran as needed. 19.The patient was also stayed on Lasix 40 mg p.o. daily. DISCHARGE INSTRUCTIONS: Low-sodium diet. Outpatient Psych referral. Geriatric referral. BMP, hemoglobin, and chest x-ray to be obtained before next followup appointment with Dr. Brown. Vandana Mireles MD Resident / Jean Muniz MD / herbert JOB #: [id number] CC: Dirk Brown MD, Attending Physician Dirk Brown MD, Family Physician
--- NOTE | 2016-12-14 00:06 | CO ---
ADMIT: 11/23/2016 RM/LOC: 402 [facility] MR#: [id number] 2620 [facility] [address] [place] [phone] EZEQU[place]ELFRANSISCO [place], [place] [address] Consultation SEX: F AGE: 76 : 1940 DATE OF CONSULTATION: 11/24/2016 ATTENDING PHYSICIAN: Dirk Brown CONSULTING PHYSICIAN: Emilia De Guzman MD HISTORY OF PRESENT ILLNESS: This is a pleasant, 76-year-old, lady admitted to the hospital a few times mostly urinary track infection, urinary retention. This time, again, she has been admitted on 11/23/2016. She is being worked up and treated for urinary tract infection. She has been found to have elevated kappa and lambda light chains and consult has been requested. PAST MEDICAL HISTORY: Positive for coronary artery disease, urinary retention, CHF, type 2 diabetes, dyslipidemia, rheumatoid arthritis, cholecystectomy, tonsillectomy, left knee surgery. FAMILY HISTORY: Negative for cancers. Father had heart disease and kidney problems. Her mother had breast cancer. SOCIAL HISTORY: She lives alone. Retired. . REVIEW OF SYSTEMS: The patient is sleepy and groggy and not a good historian. As far as obtained from the records and the patient, she has difficulty urinating, retention. No nausea or vomiting. No blood in the urine. No blood in the stool. No chest pain. No abnormal bowel movements, fatigue, mostly her symptoms has been related to her urinary retention and bladder issues. PHYSICAL EXAMINATION: VITAL SIGNS: Temperature 98, blood pressure 110/70, pulse rate 88, respirations 20. HEAD, EARS, EYES, NOSE, THROAT EXAM: Normocephalic and atraumatic. Extraocular muscles intact. NECK: Supple. No JVD. No lymph nodes palpable. CHEST: Chest sounds clear to auscultation and percussion. HEART: Normal S1 and S2. No S3 or S4. No murmurs. ABDOMEN: Soft, nontender. No organomegaly. Bowel sounds positive. EXTREMITIES: No cyanosis, clubbing, or edema. LABORATORY DATA: [place] free light chain 4.36, normal is 0.3-1.9. Lambda light chain 2.8 which is normal. The rest of the blood works documented in the [employer]. ADMIT: 11/23/2016 RM/LOC: 402 [facility] MR#: [id number] [address] [address] [place] [address] Consultation SEX: F AGE: 76 : 1940 ASSESSMENT AND PLAN: This is a pleasant, 76-year-old, lady with the urinary retention, urinary tract infections recurring. The elevated kappa and lambda chains most likely nonspecific secondary to infection, inflammation, and the ratio being normal and the elevations are not so high, less than her that, this is a nonspecific finding. I will possibly recommend just to check it again in 6 months or so unless there is any other symptoms of the my impression is that this is nonspecific elevation and even monoclonal gammopathy of uncertain significance is a remote possibility. I will follow her along and focus on her urinary tract infection at discharge and possibly see her outpatient for an appointment. I went over about the prognosis, expectations, side effects. All the questions were answered. This encounter took 60 minutes, 35 minutes was [id number]. Emilia De Guzman MD/ herbert JOB #: [id number] CC: Dirk Brown, Attending Physician Dirk Brown, Family Physician
== END 2016-11-28 11:32 | DRG 291 ==
LOC: ER 17:09 → 4PCU 20:40
PROVIDERS: ADMIT Family Medicine
DX: I13.0 Hypertensive heart and chronic kidney disease with heart failure and stage 1 through stage 4 chronic kidney disease, or unspecified chronic kidney disease (principal); I50.23 Acute on chronic systolic (congestive) heart failure; L89.151 Pressure ulcer of sacral region, stage 1; N39.0 Urinary tract infection, site not specified; E11.22 Type 2 diabetes mellitus with diabetic chronic kidney disease; F03.90 Unspecified dementia, unspecified severity, without behavioral disturbance, psychotic disturbance, mood disturbance, and anxiety; I42.9 Cardiomyopathy, unspecified; F32.9 Major depressive disorder, single episode, unspecified; J32.9 Chronic sinusitis, unspecified; I25.10 Atherosclerotic heart disease of native coronary artery without angina pectoris; N18.9 Chronic kidney disease, unspecified; D32.9 Benign neoplasm of meninges, unspecified; R33.9 Retention of urine, unspecified; E78.5 Hyperlipidemia, unspecified; M06.9 Rheumatoid arthritis, unspecified; Z79.84 Long term (current) use of oral hypoglycemic drugs